=== PATIENT | female | born 1940 | race Two or more races ===

== ENCOUNTER 2021-04-17 09:20 | Outpatient (CLI) | payer MEDICARE | END 2021-04-17 23:50 | disposition home or self-care (01) | LOC: RAD 09:20 | PROVIDERS: ATTEND Podiatrist Foot & Ankle Surgery | DX: M19.072 Primary osteoarthritis, left ankle and foot (principal); M19.071 Primary osteoarthritis, right ankle and foot; M20.12 Hallux valgus (acquired), left foot; M20.11 Hallux valgus (acquired), right foot; M20.42 Other hammer toe(s) (acquired), left foot; M20.41 Other hammer toe(s) (acquired), right foot; M77.32 Calcaneal spur, left foot; M77.31 Calcaneal spur, right foot; M85.872 Other specified disorders of bone density and structure, left ankle and foot; M85.871 Other specified disorders of bone density and structure, right ankle and foot; M79.89 Other specified soft tissue disorders | CPT/HCPCS: 73630-TC ==

== ENCOUNTER 2022-02-02 02:51 | Inpatient (IN) | payer MEDICARE ==
[~2022-02-02] VITALS: Ht 152.4 cm; Wt 44.5 kg
[2022-02-02] MEDS ORDERED: TEMAZEPAM 7.5 MG CAPSULE PO PRN (05:30)
[2022-02-02] MEDS ORDERED: BLOOD SUGAR DIAGNOSTIC 1 EACH STRIP IN ONE (05:30)
[2022-02-02] MEDS ORDERED: LORAZEPAM 0.5 MG TABLET PO PRN (05:30)
[2022-02-02] MEDS ORDERED: MAGNESIUM HYDROXIDE 30 ML UDC PO PRN (05:30)
[2022-02-02] MEDS ORDERED: MAG HYDROX/AL HYDROX/SIMETH 30 ML UDC PO PRN (05:30)
[2022-02-02 05:33] VITALS: BP 153/94
[2022-02-02] MEDS ORDERED: ALEN70TA80 MT (06:13)
[2022-02-02] MEDS ORDERED: DONE10TA44 MT (06:13)
[2022-02-02] MEDS ORDERED: ERGO500093 PO (06:13)
[2022-02-02] MEDS ORDERED: ATOR40TA MT (06:13)
--- NOTE | 2022-02-02 06:15 | NUR ---
[facility] SWAB COLLECTED AND WILL INFORM LAB TO PICK IT UP.
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
--- NOTE | 2022-02-02 06:42 | NUR ---
CLINT BEE, GIGI NOTIFIED ABOUT NEW ADMISSION IN ROOM 214-2 AND MEDS ARE READY TO BE RECONCILED, AUTOMATIC MACHINES SUPERVISOR STATED,"OK".
--- NOTE | 2022-02-02 07:03 | NUR ---
RN NOTE CHARGE NURSE ATTEMPTED TO CALL PATIENT'S DAUGHTER SANA GROSS AT [phone] BUT THIS PHONE IS NOT WORKING/NOT REACHABLE. REDD WAS CALLED AT [phone] BUT NO ONE ANSWERED AND PHONE IS KEEP RINGING. WILL ENDORSE TO AM RN TO FOLLOW UP WITH THE FAMILY DURING DAY TIME.
--- NOTE | 2022-02-02 07:30 | NUR ---
RN OPENING NOTE PATIENT IS IN BED, AWAKE, ALERT, ORIENTED X 3. DENIES SUICIDAL IDEATION. PATIENT IS AWARE WHY SHE GOT ADMITTED, STATES "IT WAS JUST A WORD BUT I WAS NOT REALLY SERIOUS ABOUT IT." VERBALIZES ANGER TOWARDS FAMILY RUY. SON FOR HAVING HER ADMITTED IN THE HOSPITAL. ON ROOM AIR, BREATHING UNLABORED AND NOT IN ANY FORM OF DISTRESS. ALL HOSPITAL SAFETY PRECAUTIONS IN PLACE. WILL CONTINUE TO MONITOR THROUGHOUT SHIFT.
[2022-02-02 07:53] LABS: ALANINE AMINOTRANSFERASE 28 U/L (12-78); ALBUMIN 3.5 g/dL (3.4-5.0); ALKALINE PHOSPHATASE 73 U/L (46-116); ASPARTATE AMINOTRANSFERASE 25 U/L (15-37); BILIRUBIN,TOTAL 0.8 mg/dL (0.2-1.0); CALCIUM, SERUM 9.8 mg/dL (8.5-10.1); CARBON DIOXIDE 32 mmol/L (21-32); CHLORIDE 106 mmol/L (98-107); CREATININE 0.7 mg/dL (0.6-1.3); GLUCOSE 89 mg/dL (74-106); POTASSIUM 3.5 mmol/L (3.5-5.1); SODIUM SERUM 143 mmol/L (136-145); TOTAL PROTEIN, SERUM 6.9 g/dL (6.4-8.2); UREA NITROGEN, BLOOD 12 mg/dL (7-18)
[2022-02-02 08:00] VITALS: BP 137/81
--- NOTE | 2022-02-02 10:29 | NUR ---
RN NOTE OT EVALUATION DONE. PATIENT ABLE TO AMBULATE AND PARTICIPATE IN ADLS. PATIENT ENCOURAGED TO GO TO ACTIVITY ROOM FOR SOME RELAXATION/RECREATIONAL ACTIVITIES BUT REFUSED AND PREFERS TO STAY IN BED. Addendum: 02/02/22 at 1224 by MILAN JANSEN RN PT EVALUATION DONE
--- NOTE | 2022-02-02 12:22 | NUR ---
RN NOTE DAUGHTER ELIZABETH CALLED TO GET UPDATES RE: PATIENT. DAUGHTER VERBALIZED THAT PATIENT HAS BEEN REFUSING TESTS FOR DEMENTIA OUTPATIENT AND THAT PATIENT HAD BEEN BELLIGERENT, AGGRESSIVE AND ABUSIVE TO FAMILY FOR MONTHS. DAUGHTER VERBALIZED THE NEED TO SPEAK WITH PSYCHIATRIST.
--- NOTE | 2022-02-02 13:11 | NUR ---
Initial Discharge Plan: THE PT. CURRENTLY RESIDES AT HOME[[id number] [facility] [address]; [phone]]. Per pt. she would like to return there once cleared. SW attempted calling her , Sonido Grover [phone] and left voicemail. CARLOS will continue to collaborate with Psychiatrist and family to form a safe discharge plan.
--- NOTE | 2022-02-02 13:11 | NUR ---
Family Contact: SW called the pt.'s , Sonido Grover [phone] and left voicemail.SW WILL BE AVAILABLE TO SPEAK WITH FAMILY NEEDED.
[2022-02-02] MEDS: ACETAMINOPHEN 325 MG TABLET PO PRN (14:59)
--- NOTE | 2022-02-02 15:00 | NUR ---
RN NOTE NOTIFIED GIGI GILBERT OF THE NEED TO RECONCILE HOME MEDS.
--- NOTE | 2022-02-02 15:04 | NUR ---
RN NOTE PATIENT VERBALIZED LEG PAIN. TYLENOL GIVEN PRN FOR PAIN. WILL CONTINUE TO MONITOR.
[2022-02-02 16:00] VITALS: BP 99/59
--- NOTE | 2022-02-02 18:48 | NUR ---
RN CLOSING NOTE PATIENT REMAINED STABLE THROUGHOUT SHIFT. PATIENT IS ALSO ABLE TO MAKE NEEDS KNOWN. DENIES PAIN, BREATHING UNLABORED AND NOT IN ANY FORM OF DISTRESS. DENIES SUICIDAL IDEATIONS OF THIS TIME. ALL HOSPITAL SAFETY PRECAUTIONS IN PLACE. WILL ENDORSE TO FORESTRY FOREMAN NURSE.
[2022-02-02 20:35] VITALS: BP 98/52
[2022-02-02] MEDS: DONEPEZIL 5 MG TABLET PO SCH (21:09)
[2022-02-02] MEDS ORDERED: DONEPEZIL 5 MG TABLET PO SCH (22:00)
[2022-02-03 08:00] VITALS: BP 133/74
[2022-02-03 08:26] LABS: CHOLESTEROL 172 mg/dL (<200); HDL CHOLESTEROL 49 mg/dL (40-60); LDL 108 mg/dL (0-99); TRIGLYCERIDES 95 mg/dL (30-150)
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
[2022-02-03] MEDS: SERTRALINE HCL 25 MG TABLET PO SCH (12:38)
[2022-02-03] MEDS: ACETAMINOPHEN 325 MG TABLET PO PRN (13:39)
--- NOTE | 2022-02-03 13:40 | NUR ---
NURSES NOTE: DISCOLORATION NOTED TO MID BACK. PICTURE TAKEN AND PLACED IN CHART.
--- NOTE | 2022-02-03 13:40 | NUR ---
NURSE NOTE: PT C/O PAIN TO LOWER BACK. TYLENOL ADMINISTERED ORDERED. WILL CONT TO MONITOR.
[2022-02-03 16:00] VITALS: BP 100/70
--- NOTE | 2022-02-03 19:15 | NUR ---
GPS RN NOTES RECEIVED PATIENT IN HER BED RESTING COMFORTABLY. AWAKE, ALERT AND ORIENTED X3. NO S/SX OF ACUTE DISTRESS NOTED. PATIENT REMAINS ISOLATIVE, FORGETFUL AND CONFUSED AT TIMES. NO VERBALIZATION OF THOUGHTS AND FEELINGS. SAFETY PRECAUTIONS MAINTAINED. WILL CONTINUE TO MONITOR Q15MIN ROUNDS FOR SAFETY AND BEHAVIOR.
[2022-02-03 20:00] VITALS: BP 118/52
[2022-02-03] MEDS: DONEPEZIL 5 MG TABLET PO SCH (21:12)
[2022-02-03] MEDS ORDERED: DONEPEZIL 5 MG TABLET PO SCH (22:00)
[2022-02-03] MEDS ORDERED: ATORVASTATIN 40 MG TABLET PO SCH (22:00)
[2022-02-04 08:00] VITALS: BP 123/69
--- NOTE | 2022-02-04 10:00 | NUR ---
RN NOTES PATIENT'S DAUGHTER ELIZABETH CALLED AROUND 1000 AM. THE DAUGHTER ASKED ABOUT THE PATIENT'S CONDITION. THE PATIENT REFUSED TO TALK TO THE AND TO THE DAUGHTER. THE DAUGHTER STATED THAT THE PATIENT THINKS THAT THEY ARE HER ENEMIES. DAUGHTER ALSO STATED THAT PATIENT IS CONFUSED. SOMETIMES VERY ALERT SOMETIMES FORGETFUL.
--- NOTE | 2022-02-04 10:01 | NUR ---
Family contact: SW called the pt.'s daughter, Pooja Grover [phone] and call went to voicemail and SW left call back number.
--- NOTE | 2022-02-04 11:30 | NUR ---
RN NOTES CALLED RADIOLOGY AND SPOKE WITH SHEILA AT [address] SCAN, SHEILA STATED THEY ARE BUSY WITH ER AND HAVE MORE PATIENTS, AND HE STATED WILL CALL US BACK WHEN THEY ARE READY.
[2022-02-04] MEDS: SERTRALINE HCL 25 MG TABLET PO SCH (12:31)
--- NOTE | 2022-02-04 12:32 | NUR ---
RN NOTES PATIENT REFUSED [facility]OLOFT FOR 1300. EXPLAINED THE BENEFITS AND THE USE OF THE MEDICATION , PATIENT STILL REFUSING THE MEDICATION.
--- NOTE | 2022-02-04 13:20 | NUR ---
RN NOTES THEY CALLED FROM RADIOLOGY AROUND 1317 AND ASKED IF PATIENT IS AMBULATORY, I STATED YES. THEY SAID THEY WILL COME SOON BY WHEELCHAIR TO MOTOR VEHICLE LECTURER THE PATIENT. THEY DIDNT COME TO DO THE CT TILL END OF THE SHIFT.
[2022-02-04 16:00] VITALS: BP 140/75
[2022-02-04 20:00] VITALS: BP 117/62
--- NOTE | 2022-02-04 20:38 | NUR ---
RN NOTES: PATIENT RESTING IN ROOM. NO S/SX OF ACUTE DISTRESS NOTED, EASILY AGITATED, DISORGANIZED,FORGETFUL. ENCOURAGED TO VERBALIZE ANY FEELING OR CONCERN AND ENCOURAGED TO PARTICIPATE IN THE GROUP ACTIVITIES,DENIES SI/HI AT THIS TIME. SAFETY MEASURES IN PLACE. WILL CONTINUE TO MONITOR Q15MIN ROUNDS FOR SAFETY AND BEHAVIOR.
[2022-02-04] MEDS: DONEPEZIL 5 MG TABLET PO SCH (21:14)
[2022-02-05] MEDS: ACETAMINOPHEN 325 MG TABLET PO PRN ×3 (01:56→22:21)
[2022-02-05 08:00] VITALS: BP 121/69
--- NOTE | 2022-02-05 11:02 | NUR ---
SNF referral: SW faxed clinicals to [facility] FAX:[phone] PHONE:[phone]. SW will follow up as needed.
--- NOTE | 2022-02-05 11:04 | NUR ---
SNF referral: CARLOS faxed clinicals to [facility] FAX:[phone] PHONE:[phone]. CARLOS will follow up as needed.
[2022-02-05] MEDS: SERTRALINE HCL 25 MG TABLET PO SCH (13:26)
--- NOTE | 2022-02-05 14:14 | NUR ---
CARLOS was notified by [facility] FAX:[phone] PHONE:[phone] that they are accepting this patient.
--- NOTE | 2022-02-05 14:15 | NUR ---
SW was notified by Barb from [facility] FAX:[phone] PHONE:[phone] hat they are accepting patient.
[2022-02-05 16:00] VITALS: BP 127/68
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
--- NOTE | 2022-02-05 16:38 | NUR ---
DC PLAN UPDATE: SW RECEIVED CALL FROM the pt.'s daughter, Pooja Grover [phone] STATING THAT SHE WOULD PREFER ASSISTED LIVING FACILITY PLACEMENT FOR PATIENT.SW WILL MAKE REFERRALS NEEDED.
[2022-02-05 20:00] VITALS: BP 113/59
--- NOTE | 2022-02-05 20:26 | NUR ---
RN NOTES: PATIENT RESTING IN ROOM.AWAKE ALERT, NO S/SX OF ACUTE DISTRESS NOTED, EASILY AGITATED, DISORGANIZED,FORGETFUL. ENCOURAGED TO VERBALIZE ANY FEELING OR CONCERN AND ENCOURAGED TO PARTICIPATE IN THE GROUP ACTIVITIES,DENIES SI/HI AT THIS TIME. SAFETY MEASURES IN PLACE. WILL CONTINUE TO MONITOR Q15MIN ROUNDS FOR SAFETY AND BEHAVIOR.
[2022-02-05] MEDS: DONEPEZIL 5 MG TABLET PO SCH (21:16)
[2022-02-06] MEDS ORDERED: ALENDRONATE 70 MG TABLET PO SCH (07:30)
[2022-02-06 08:00] VITALS: BP 140/67
[2022-02-06] MEDS ORDERED: ERGOCALCIFEROL (VITAMIN D 2) 50,000 UNIT CAPSULE PO SCH (09:00)
--- NOTE | 2022-02-06 11:02 | NUR ---
RN-NOTES PATIENT REFUSED TO DO MRI ORDERED. FORMULA CLERK EXPLAINED AND ENCOURAGED BUT PATIENT GETS ANGRY AND IRRITABLE. STATED" WHY SHOULD I DO THAT I JUST HAVE MY CT DONE AND THAT'S IT, NO MORE". CHARGE NURSE AWARE.
[2022-02-06] MEDS: SERTRALINE HCL 25 MG TABLET PO SCH ×2 (12:27→16:46)
[2022-02-06 16:00] VITALS: BP 133/60
--- NOTE | 2022-02-06 20:29 | NUR ---
RN NOTES: PATIENT RESTING IN ROOM.AWAKE ALERT X2 , NO S/SX OF ACUTE DISTRESS NOTED, EASILY AGITATED, DISORGANIZED,FORGETFUL, ISOLATIVE ENCOURAGED TO VERBALIZE ANY FEELING OR CONCERN AND ENCOURAGED TO PARTICIPATE IN THE GROUP ACTIVITIES,DENIES SI/HI AT THIS TIME. SAFETY MEASURES IN PLACE. WILL CONTINUE TO MONITOR Q15MIN ROUNDS FOR SAFETY AND BEHAVIOR.
[2022-02-06 20:53] VITALS: BP 128/63
[2022-02-06] MEDS: DONEPEZIL 5 MG TABLET PO SCH (21:31)
[2022-02-07 08:00] VITALS: BP 154/88
[2022-02-07] MEDS: SERTRALINE HCL 25 MG TABLET PO SCH ×2 (13:50→18:02)
[2022-02-07 16:00] VITALS: BP 134/68
[2022-02-07 20:32] VITALS: BP 111/57
[2022-02-07] MEDS: DONEPEZIL 5 MG TABLET PO SCH (21:12)
[2022-02-08 08:00] VITALS: BP 127/67
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
--- NOTE | 2022-02-08 10:59 | NUR ---
Court Notification: Daughter Pooja ([phone]) has been in contact with patient's advocate Cass.
[2022-02-08] MEDS: SERTRALINE HCL 25 MG TABLET PO SCH ×2 (14:21→17:29)
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
[2022-02-08 16:00] VITALS: BP 124/50
--- NOTE | 2022-02-08 18:40 | NUR ---
PT ABLE TO MAKE NEEDS KNOWN, DID NOT LIKE DINNER, GIVEN A SANDWICH DID NOT LIKE SANDWICH GIVEN ANOTHER DIFFERENT SANDWICH AND HAD A FEW BITES, EXPLAINED HOW SHE IS A PICKY EATER COMPLIANT WITH CARE, ALL NEEDS MET IN A TIMELY MANNER, ABLE TO PERFORM OWN FELICIA CARE , ASSISTED WITH BED BATH, BED LOW TO FLOOR, WHEELS LOCKED, SAFETY PRECAUTIONS IN PLACE, NO C/O SOB , NO DISTRESS NOTED AND NO C/O ANY PAIN DURING SHIFT.
[2022-02-08 20:48] VITALS: BP 125/64
[2022-02-08] MEDS: DONEPEZIL 5 MG TABLET PO SCH (22:30)
[2022-02-09 08:00] VITALS: BP 120/62
[2022-02-09] MEDS: SERTRALINE HCL 25 MG TABLET PO SCH ×2 (13:19→17:41)
--- NOTE | 2022-02-09 14:05 | NUR ---
Family Contact: SW spoke with Pooja Reilly ([phone]) and notified pt is accepted at [facility] and [facility] and she said she would tour the facility.
[2022-02-09 16:00] VITALS: BP_SYST 115; BP_SYST 125; BP_DIAS 59; BP_DIAS 74
[2022-02-09] MEDS: ENSURE ENLIVE 237 ML LIQUID (VANILLA) PO SCH (17:42)
[2022-02-09 20:04] VITALS: BP 111/54
[2022-02-09] MEDS: DONEPEZIL 5 MG TABLET PO SCH (21:09)
[2022-02-09] MEDS ORDERED: QUETIAPINE FUMARATE 25 MG TABLET PO SCH (22:00)
--- NOTE | 2022-02-10 07:10 | NUR ---
GPS RN NOTES RECEIVED PT RESTING IN BED, NO S/S OF SOB OR DISTRESS NOTED. PATIENT HAS EPISODES OF FORGETFULNESS. WILL ENCOURAGE VERBALIZATION OF FEELINGS. SAFETY PRECAUTIONS MAINTAINED. WILL CONTINUE TO MONITOR THROUGHOUT SHIFT.
[2022-02-10 08:00] VITALS: BP 130/61
[2022-02-10] MEDS: ENSURE ENLIVE 237 ML LIQUID (VANILLA) PO SCH ×2 (09:33→17:14)
[2022-02-10] MEDS: SERTRALINE HCL 25 MG TABLET PO SCH ×2 (13:08→16:31)
[2022-02-10 16:00] VITALS: BP 122/67
--- NOTE | 2022-02-10 19:15 | NUR ---
GPS RN NOTES RECEIVED PATIENT IN HER BED RESTING COMFORTABLY. ALERT AND ORIENTED X3. NO S/SX OF ACUTE DISTRESS NOTED. PT'S DAUGHTER AT BEDSIDE SUPPORTIVE OF CARE. PATIENT REMAINS ISOLATIVE, FORGETFUL, CONFUSED, LABILE MOOD. NO VERBALIZATION OF THOUGHTS AND FEELINGS. SAFETY PRECAUTIONS MAINTAINED. WILL CONTINUE TO MONITOR Q15MIN ROUNDS FOR SAFETY AND BEHAVIOR.
[2022-02-10 20:00] VITALS: BP 111/58
[2022-02-10] MEDS: DONEPEZIL 5 MG TABLET PO SCH (21:12)
[2022-02-11 08:00] VITALS: BP 108/66
[2022-02-11] MEDS: ENSURE ENLIVE 237 ML LIQUID (VANILLA) PO SCH ×2 (08:47→17:16)
--- NOTE | 2022-02-11 09:00 | NUR ---
RN NOTE- RECEIVED PATIENT IN HER BED RESTING COMFORTABLY. ALERT AND ORIENTED X3. NO S/SX OF ACUTE DISTRESS NOTED. PATIENT REMAINS ISOLATIVE, FORGETFUL, CONFUSED, LABILE MOOD. NO VERBALIZATION OF THOUGHTS AND FEELINGS. SAFETY PRECAUTIONS MAINTAINED. WILL CONTINUE TO MONITOR Q15MIN ROUNDS FOR SAFETY AND BEHAVIOR.
[2022-02-11] MEDS: SERTRALINE HCL 25 MG TABLET PO SCH ×2 (12:10→17:16)
--- NOTE | 2022-02-11 14:15 | NUR ---
Family Contact: SW attempted to contact Pooja Grover ([phone]) and she was unavailable. SW was unable to leave a voicemail at this time.
--- NOTE | 2022-02-11 14:53 | NUR ---
Family Contact: SW contacted Pooja Grover ([phone]) daughter and she stated that she is touring the facilities [facility] and she will give this real estate underwriter an answer by 02/12.
[2022-02-11 16:00] VITALS: BP 108/54
[2022-02-11 20:00] VITALS: BP 126/71
[2022-02-11 20:09] VITALS: BP 126/71
[2022-02-11] MEDS: DONEPEZIL 5 MG TABLET PO SCH (21:13)
--- NOTE | 2022-02-12 07:09 | NUR ---
RN NOTE: PATIENT SLEPT WELL AT NIGHT, NO ACUTE CHANGES NOTED THROUGH OUT THE NIGHT. PATIENT REMAINED CALM AND COOPERATIVE. WILL ENDORSE TO AM RN.
[2022-02-12 08:00] VITALS: BP 109/50
[2022-02-12] MEDS: ENSURE ENLIVE 237 ML LIQUID (VANILLA) PO SCH ×2 (08:51→17:24)
--- NOTE | 2022-02-12 10:40 | NUR ---
Family Contact: CARLOS contacted Pooja Grover ([phone]) and left a voicemail to contact this global technical writer to discuss which placement she had chosen.
[2022-02-12] MEDS: SERTRALINE HCL 25 MG TABLET PO SCH ×2 (11:58→17:24)
--- NOTE | 2022-02-12 13:56 | NUR ---
Family Contact: SW contacted Pooja Grover ([phone]) and she stated that she prefers for pt to come to live with her located at [address] [facility] ([id number]). She stated that since her mother is alert and oriented x4 she would want her mother to be in the process of the facility tours.
--- NOTE | 2022-02-12 14:17 | NUR ---
CARLOS Coordination of Care: Patient will follow up with Primary Doctor, Dr. Keven Bradford located at [address] [place] [address], [address], [place] [address]; ([phone]) on February 25 at 11AM who will monitor and provide patients antipsychotic medications scheduled, scheduled by Lizzeth. CARLOS requested for a psych referral. Addendum: 02/12/22 at 1436 by CARLOS THOMPSON CARLOS sent patient's clinicals to doctor office F: [phone], CARLOS faxed it.
--- NOTE | 2022-02-12 14:33 | NUR ---
SW Discharge Note: Patient will be discharged to [facility] located at [facility] [place] [address]; ([phone]). Patients efraín Cline ([phone]) will picker packer pt between 6-7PM. Patient is alert and oriented x3. Patient denies visual/auditory hallucinations. Patient denies suicidal or homicidal ideation. Patient will follow up with Primary Doctor, Dr. Keven Bradford located at [address] [place] [address], [address], [place] [id number]; ([phone]) on February 25 at 11AM who will monitor and provide patients antipsychotic medications.
[2022-02-12 16:00] VITALS: BP 120/65
--- NOTE | 2022-02-12 18:57 | NUR ---
GPS/RN PHARMACY CALLED IN WITH PRESCRIPTIONS. [facility] [phone]
[2022-02-12 20:10] VITALS: BP 115/68
--- NOTE | 2022-02-12 20:15 | NUR ---
DISCHARGE NOTE : Patient is aware of her discharge home with daughter norma [phone], and daughter norma pick her up around 2014 . she denied suicidal and homicidal ideation. Denied auditory and visual hallucination. Calm and cooperative to care.vital signs with normal in stable condition , Her affect is bright and excited to go home. pt. daughter signed discharge papers and belongings list paper, and she verbalized understanding. All belongings was given back to her. Her up coming appointment was discussed and she verbalized understanding. she was escorted by staff in the hospital lob. Addendum: 02/12/22 at 2030 by ELDON BROWNLEE RN pt. efraín maxwell # [phone]
== END 2022-02-12 20:18 | disposition home or self-care (01) | DRG 885 ==
LOC: GPS 04:55
PROVIDERS: ADMIT Psychiatry & Neurology Psychosomatic Medicine; ATTEND Nurse Practitioner Acute Care
DX: F33.2 Major depressive disorder, recurrent severe without psychotic features (principal); F01.50 Vascular dementia, unspecified severity, without behavioral disturbance, psychotic disturbance, mood disturbance, and anxiety; E44.0 Moderate protein-calorie malnutrition; Z68.1 Body mass index [BMI] 19.9 or less, adult; E78.5 Hyperlipidemia, unspecified; H91.90 Unspecified hearing loss, unspecified ear; M41.9 Scoliosis, unspecified; M81.0 Age-related osteoporosis without current pathological fracture; Z91.19 Patient's noncompliance with other medical treatment and regimen; M54.50 Low back pain, unspecified; Z88.0 Allergy status to penicillin; F42.3 Hoarding disorder
CPT/HCPCS: 36415; 70450-TC; 72100-TC; 80053-TC; 80061-TC; 82962-TC; 87081-TC; 97110-TC; 97112-TC; 97116-TC